=== PATIENT | female | born 1975 | race Caucasian/White ===

== ENCOUNTER 2020-09-11 10:41 | Day surgery (SDC) | payer BC, OTHER ==
[~2020-09-11] VITALS: Ht 165.1 cm; Wt 143.8 kg
--- NOTE | ~2020-09-11 | O ---
[facility] [place] [address] OPERATIVE REPORT Name: ALINE JC Room #: 150-7 [facility] M.R.#: [id number] Admission: 09/11/20 Attend Phys: Sarah Hahn, Discharge: Date of : 79 Report #: [id number] THIS REPORT FOR: cc: FARHAT PERRY Physician not on staff Sarah Hahn MD ~ DOC #: [id number] Sarah Hahn MD DATE OF SERVICE: 09/11/2020 PREOPERATIVE DIAGNOSIS: Left small finger proximal phalanx fracture. POSTOPERATIVE DIAGNOSIS: Left small finger proximal phalanx fracture. PROCEDURE PERFORMED: Closed reduction and percutaneous pin fixation, left small finger proximal phalanx fracture. SURGEON: Sarah Hahn MD. TYPE OF ANESTHESIA: General mask anesthesia. ESTIMATED BLOOD LOSS: Minimal. TOURNIQUET TIME: 31 minutes. COMPLICATIONS: None. CONDITION: Stable. DISPOSITION: To recovery room. INDICATIONS: The patient is a 45-year-old female with the above-mentioned diagnosis. She elects for operative treatment. The risks, benefits, alternatives and complications were discussed including, but not limited to infection, damage to vessels or nerves, nonunion, malunion, hardware failure, hardware irritation. Informed consent was obtained. The correct extremity was identified and labeled by myself after verbal confirmation of the patient as well as visual confirmation and signed informed consent. DESCRIPTION OF PROCEDURE: The patient was brought back to the operating room and placed in the supine position. She received preoperative antibiotics. Tourniquet was placed over padding. The left lower extremity was sterilely prepped and draped in the usual fashion. Final timeout was taken to verify correct patient, operative procedure, operative site, all concurred. The arm was elevated, exsanguinated and the tourniquet inflated. Next, closed reduction maneuver was performed adequately. The ulnar-sided K-wire was placed without [facility] [address] [place] [address] OPERATIVE REPORT Name: ALINE JC Room #: 150-7 [facility] M..#: [id number] Admission: 09/11/20 Attend Phys: Sarah Hahn, Discharge: Date of : 79 Report #: [id number] any significant difficulty antegrade across the fracture site. A radial-sided one was more difficult due to their comminution. It was eventually able to be placed with bicortical fixation and appropriate alignment. The pins were then cut beneath the skin. AP, lateral live fluoroscopic views also showed good position of the hardware and the fracture. There is no rotational or angular deformity. Subcutaneous tissue was infiltrated with approximately 5 mL of 0.25% Marcaine. The pins were cut beneath the skin. The wound was dressed with Adaptic and sterile gauze. She was placed in a bulky dressing and a volar dorsal slab splint with the MP joints flexed. All fingers were pink, brisk capillary refill at the conclusion of case after deflation of tourniquet. All sponge and needle counts were correct. The patient transferred to postoperative recovery room in stable condition. MD SHIVANI Steiner/FUNMI By: [id number] Sarah Hahn MD /nt
[~2020-09-11 10:41] MED LIST: ASPIRIN EC81 M1 PO; CARVEDILOL25 MG PO; ENTRESTO 24 MG1 EACH PO; IBUPROFEN 600600 M1 PO; LIPITOR 40 MG T40 M1 PO; METFORMIN HCL1000 MG PO; ZANTAC-360 (FAM20 MG PO
[2020-09-11 11:00] VITALS: BP 140/61
--- NOTE | 2020-09-12 07:25 | EKG ---
[address] [address] ELECTROCARDIOGRAM REPORT Name: ALINE JC [id number] Admission: 09/11/20 Attend Phys: Sarah Hahn, Discharge: 09/11/20 Date of : 79 Report #: [id number] [facility] Test Date: 2020-09-11 Test Time: 11:32:15 Pat Name: ALINE JC Department: Room: 150 7 Gender: F Grinder Tender: CRISTEL : 1975 Requested By: Sarah Hahn Order Number: [id number] MD: Tello Santiago Measurements Intervals [place] Rate: 73 P: 34 WA: 165 QRS: 3 QRSD: 81 T: 52 QT: 386 QTc: 426 Interpretive Statements Sinus rhythm Anteroseptal infarct, old Baseline wander in lead(s) II,III,aVF No previous ECG available for comparison Electronically Signed On 09-12-2020 7:24:59 CDT by Tello Santiago [email or web address] <ELECTRONICALLY SIGNED> By: Tello Santiago MD, [facility] 09/12/2024 113 113 Tello Santiago MD, [facility] /EPI
== END 2020-09-11 11:53 | disposition home or self-care (01) ==
LOC: OR 10:41 → TBA 10:41 → OR 11:53
PROVIDERS: ATTEND Orthopaedic Surgery Hand Surgery
DX: S62.617A Displaced fracture of proximal phalanx of left little finger, initial encounter for closed fracture (principal); I10 Essential (primary) hypertension; I48.91 Unspecified atrial fibrillation; K21.9 Gastro-esophageal reflux disease without esophagitis; F17.210 Nicotine dependence, cigarettes, uncomplicated; Z98.890 Other specified postprocedural states; Z79.899 Other long term (current) drug therapy; Z90.49 Acquired absence of other specified parts of digestive tract; Z79.01 Long term (current) use of anticoagulants; Z91.040 Latex allergy status; X58.XXXA Exposure to other specified factors, initial encounter; Y93.89 Activity, other specified; Y92.89 Other specified places as the place of occurrence of the external cause; Y99.8 Other external cause status
CPT/HCPCS: 50010; 50101; 50386; 51291; 56526; 57006; 57091; 57179; 62110; 62900; 70005

== ENCOUNTER → 2020-10-14 | Day surgery (SDC) | payer BC, OTHER ==
[~2020-10-14] VITALS: Ht 167.6 cm; Wt 170.6 kg
--- NOTE | ~2020-10-14 | O ---
[facility] [place] [address] OPERATIVE REPORT Name: ALINE JC Room #: REG [facility]#: [id number] Admission: 10/14/20 Attend Phys: Sarah Hanh, Discharge: Date of : 79 Report #: [id number] THIS REPORT FOR: cc: FAM - Family physician unknown FAM - Family physician unknown Sarah Hahn MD ~ DATE OF SERVICE: 10/14/2020 PREOPERATIVE DIAGNOSIS: Retained K-wires, left small finger, deep, buried and planned removal. POSTOPERATIVE DIAGNOSIS: Retained K-wires, left small finger, deep, buried and planned removal. PROCEDURE PERFORMED: Deep K-wire removal, left small finger, buried, planned removal. SURGEON: Sarha Hahn M.D. ANESTHESIA: General mask anesthesia. ESTIMATED BLOOD LOSS: Minimal. TOURNIQUET TIME: 5 minutes. COMPLICATIONS: None. CONDITION: Stable. DISPOSITION: To recovery room. INDICATIONS: The patient is a 45-year-old female with the above-mentioned diagnosis. She elects for operative treatment. The risks, benefits, alternatives and complications were discussed including but not limited to infection, damage to vessels or nerves, incomplete relief or worsening of any symptoms. Informed consent was obtained, the correct extremity was identified and labeled by myself after verbal confirmation of patient as well as visual confirmation and signed informed consent. DESCRIPTION OF PROCEDURE: The patient was brought back to the operating room and placed in a supine position. Left upper extremity was sterilely prepped and draped in the usual fashion. Timeout was taken to verify correct patient, procedure and site, all concurred. The arm was elevated, exsanguinated and the tourniquet inflated. Two small incisions were made over the palpable K-wires. Dissection was carried down through subcutaneous tissue with tenotomy scissors. Each K-wires were removed without difficulty. Fluoroscopy was brought in, which showed healing fracture in appropriate alignment. There was no motion at the [address] [address] OPERATIVE REPORT Name: BABITAALINE Vijay Room #: REG [facility].#: [id number] Admission: 10/14/20 Attend Phys: Sarah Hahn, Discharge: Date of : 79 Report #: [id number] fracture site. I was able to flex the MP joint easily to 90 degrees. The wounds were thoroughly irrigated. Skin was closed with 4-0 nylon suture. Wounds dressed with Adaptic and sterile gauze. She was placed in a bulky dressing. All fingers were pink and brisk capillary refill at the conclusion of case after deflation of tourniquet. All sponge and needle counts were correct. The patient transferred to postoperative recovery room in stable condition. By: [id number] Sarah Hahn MD /nt
[2020-10-14 10:31] VITALS: BP 116/66
[2020-10-14 12:38] VITALS: BP 116/66
== END | disposition home or self-care (01) ==
LOC: OR 08:36
PROVIDERS: ATTEND Orthopaedic Surgery Hand Surgery
DX: T84.84XA Pain due to internal orthopedic prosthetic devices, implants and grafts, initial encounter (principal); M25.542 Pain in joints of left hand; I10 Essential (primary) hypertension; E78.5 Hyperlipidemia, unspecified; I25.2 Old myocardial infarction; K21.9 Gastro-esophageal reflux disease without esophagitis; F17.210 Nicotine dependence, cigarettes, uncomplicated; Z98.890 Other specified postprocedural states; Z20.822 Contact with and (suspected) exposure to COVID-19; Z79.899 Other long term (current) drug therapy; Z90.49 Acquired absence of other specified parts of digestive tract; Y83.8 Other surgical procedures as the cause of abnormal reaction of the patient, or of later complication, without mention of misadventure at the time of the procedure
CPT/HCPCS: 50010; 50101; 50386; 56526; 57006; 57092; 57179; 62110; 62900; 70005